=== PATIENT | male | born 1945 | race Caucasian/White ===

== ENCOUNTER → 2019-04-21 12:48 | Outpatient (CLI) | payer MEDICARE, BC, OTHER, SELFPAY ==
--- NOTE | 2019-04-29 10:24 | PM.PFT.1 ---
Pulmonary Function Test Referral & Results Date Patient Seen: 04/21/19 Requesting provider: Moises Aguirre Results: The spirometry demonstrates an FVC of 2.75 L which is 62% of predicted. The FEV1 was measured at 2.04 L which is 63% of predicted. The FEV1/FVC ratio was 74 which is 101% of predicted. Following the administration of bronchodilator there was a 25% improvement in FEF 25-75%. Lung volumes show an SVC of 2.80 L which is 61% of predicted. The diffusing capacity was measured at 24.75 which is 76% of predicted. No hemoglobin value was provided, so no correction for potential anemia could be made, if appropriate. The maximum voluntary ventilation was reduced Interpretation: This study demonstrates mild to moderate obstructive lung disease with some limited evidence of benefit following bronchodilator, particularly small airway flow based on improvement in FEF 25-75% as above There is also moderate reduction in lung volumes suggesting moderate restrictive lung disease There is also minimal reduction in diffusing capacity suggesting an element of disease at the capillary alveolar level as well
== END ==
PROVIDERS: PCP Internal Medicine; Visit Provider Internal Medicine
DX: R06.02 Shortness of breath (principal); Z87.891 Personal history of nicotine dependence; J45.909 Unspecified asthma, uncomplicated
CPT/HCPCS: 94060; 94726; 94729

== ENCOUNTER → 2019-08-15 14:11 | Outpatient (CLI) | payer MEDICARE, BC, OTHER, SELFPAY ==
[2019-08-16 14:33] LABS: COVID19 Sendout Not Detected (Not Detect)
== END ==
PROVIDERS: PCP Internal Medicine; Visit Provider Registered Nurse
DX: R05 Cough (principal)
CPT/HCPCS: 87635

== ENCOUNTER → 2019-08-15 14:24 | Outpatient (CLI) | payer MEDICARE, BC, SELFPAY ==
--- NOTE | 2019-08-15 14:30 | DI.RAD.S_ITS ---
PROCEDURE: XR CHEST 2V INDICATIONS: Shortness of breath TECHNIQUE: 2 views of the chest were acquired. COMPARISON: None. FINDINGS: Surgical changes and devices: Median sternotomy and post CABG changes. Lungs and pleura: Prominent pulmonary parenchymal opacity overlying the right first rib end. Small bibasilar opacities medially, likely atelectatic changes or scar No pleural effusions or pneumothorax. Mediastinum: Mediastinal contours are normal. Heart size is normal. Bones and chest wall: No suspicious bony abnormalities. Soft tissues appear unremarkable. IMPRESSION: 1. Bibasilar medial parenchymal opacities may be atelectasis or scar. Underlying infection is not excluded. 2. Parenchymal opacity underlying the right first rib arc. 3. Further evaluation with PA and lateral chest is recommended when the patient is able. Dictated by: Staci Yang M.D. on 08/15/2019 at 14:46 Approved by: Staci Yang M.D. on 08/15/2019 at 14:49
== END ==
PROVIDERS: PCP Internal Medicine; Referring Provider Registered Nurse; Visit Provider Registered Nurse
DX: R06.02 Shortness of breath (principal); R05 Cough; Z95.1 Presence of aortocoronary bypass graft
CPT/HCPCS: 71046; 87635